=== PATIENT | female | born 2000 | race Two or more races ===

== ENCOUNTER 2018-07-23 15:32 | Emergency (ER) | payer SELFPAY ==
[2018-07-23 15:58] VITALS: BP 109/78
[2018-07-23] MEDS ORDERED: Lidocaine 1%* 5 ML VIAL INJ ONE (16:07)
--- NOTE | 2018-07-23 16:12 | UC ---
Skin Complaint HPI - HPI Summary HPI Summary: 18-year-old woman comes in with a chief complaint of foreign body in the right hand. 3 days ago she was cleaning up a broken glass and got glass in the palm of her right hand. She can still feel it and there she's been unable to get it out. It hurts more when she flexes and extends her fingers.. The injury is on the palmar surface over the distal second metacarpal. No fevers no drainage. - History of Current Complaint Chief Complaint: UCLaceration Time Seen by Provider: 07/23/18 15:57 Stated Complaint: GLASS IN RIGHT HAND Hx Last Menstrual Period: 07/08/18 Pain Intensity: 7 - Allergy/Home Medications Allergies/Adverse Reactions: Allergies Allergy/AdvReac Type Severity Reaction Status Date / Time No Known Allergies Allergy Verified 07/23/18 15:54 PMH/Surg Hx/FS Hx/Imm Hx Previously Healthy: Yes - Surgical History Surgical History: None - Family History Known Family History: Positive: Non-Contributory - Social History Alcohol Use: None Substance Use Type: None Smoking Status (MU): Never Smoked Tobacco Review of Systems All Other Systems Reviewed And Are Negative: Yes Constitutional: Positive: Negative Skin: Positive: Other - see hpi Eyes: Positive: Negative ENT: Positive: Negative Respiratory: Positive: Negative Cardiovascular: Positive: Negative Gastrointestinal: Positive: Negative Motor: Positive: Negative Neurovascular: Positive: Negative Musculoskeletal: Positive: Other: - see hpi Neurological: Positive: Negative Psychological: Positive: Negative Is Patient Immunocompromised?: No Physical Exam Triage Information Reviewed: Yes Appearance: Well-Appearing, No Pain Distress, Well-Nourished Vital Signs: Initial Vital Signs Temp 97.4 F 07/23/18 15:52 Pulse 73 07/23/18 15:52 Resp 16 07/23/18 15:52 BP 109/78 07/23/18 15:52 Pulse Ox 98 07/23/18 15:52 Vital Signs Reviewed: Yes Eye Exam: Normal Eyes: Positive: Conjunctiva Clear Neck exam: Normal Neck: Positive: Supple Respiratory: Positive: No respiratory distress - 6mm linear healed laceration palmar surface over the distal 2nd metacarpal Musculoskeletal: Positive: Other: - 6mm linear healed laceration palmar surface over the distal 2nd metacarpal. There is a feeling of a FB under the surface. No erythema. No dainage or streaking.Fingers/wrist from. Normal sensation and cap refill. Neurological Exam: Normal Neurological: Positive: Alert, Muscle Tone Normal Psychological Exam: Normal Psychological: Positive: Age Appropriate Behavior Skin: Positive: Other - 6mm linear healed laceration palmar surface over the distal 2nd metacarpal Course/Dx - Course Course Of Treatment: Patient Name: KENNY VARGAS Medical Record#: [id number]. Ordering Physician: Bryson Villanueva MD Acct.#: [id number]. : 2000 Age: 18 Sex: F Location: [facility]. Exam Date: 07/23/181654 ADM Status: DEP ER. Order Information: HAND RIGHT 2 VWS. Accession Number: [id number]. CPT: 42368. INDICATION: Glass and palmar aspect of distal second metacarpal. COMPARISON: None. TECHNIQUE: 4 views of the right hand were obtained. FINDINGS: The site of the injury is indicated with a paperclip in the lateral view overlying the. palmar aspect of the distal metacarpals. There is no radiographically apparent foreign. body. The adequately corticated bones are in normal alignment. Well-circumscribed round. densities overlying the volar aspect of the index finger metacarpal head are consistent. with benign bony ossicle. IMPRESSION: No radiographically visible foreign body is seen. If the patient's symptoms persist, follow-up imaging is recommended. . <Electronically signed by Bob Klesey MD in OV> 07/23/18 [id number]. I attempted foreign body removal in the right hand. He is 1% lidocaine after cleaning with Shur-Clens. I opened the old wound using a #11 blade. I was unable to locate the foreign body. Bleeding was controlled afterwards with direct pressure dressing was placed by nursing. Patient reports she is up-to-date on her tetanus shot. A placement patient on Keflex and she will be following up with orthopedics hand specialist. - Diagnoses Provider Diagnosis: Soft tissues foreign body Discharge - Sign-Out/Discharge Documenting (check all that apply): Patient Departure All imaging exams completed and their final reports reviewed: Yes - Discharge Plan Condition: Stable Disposition: HOME Prescriptions: Cephalexin CAP* [Keflex CAP*] 500 mg PO TID #30 cap Patient Education Materials: Soft Tissue Foreign Body (ED) Referrals: Patricia Negron MD [Medical Doctor] - Additional Instructions: FOLLOW UP WITH THE ORTHOPEDIST HAND SPECIALIST. GET RECHECKED FOR ANY WORSENING OF YOUR CONDITION; PAIN, SIGNS OF INFECTION OR QUESTIONS OR CONCERNS. - Billing Disposition and Condition Condition: STABLE Disposition: Home
== END 2018-07-23 17:25 | disposition home or self-care (01) ==
LOC: UCCORT 15:32
DX: M79.5 Residual foreign body in soft tissue (principal); W45.8XXA Other foreign body or object entering through skin, initial encounter; Y93.89 Activity, other specified; Y92.9 Unspecified place or not applicable
CPT/HCPCS: 10120; 99202; G0463